=== PATIENT | female | born 1965 | race Caucasian/White ===

== ENCOUNTER → 2019-06-26 | Outpatient (CLI) | payer SELFPAY ==
[~2019-06-26] MED LIST: ATEN25TA PO
== END | disposition home or self-care (01) ==
LOC: HW VAS 04:49
DX: Z13.6 Encounter for screening for cardiovascular disorders (principal)

== ENCOUNTER 2024-11-15 09:53 | Outpatient (CLI) | payer MEDICARE, OTHER | END 2024-11-15 23:59 | disposition home or self-care (01) | LOC: MRI02 09:53 | PROVIDERS: ATTEND Physician Assistant | DX: M47.815 Spondylosis without myelopathy or radiculopathy, thoracolumbar region (principal); M81.0 Age-related osteoporosis without current pathological fracture; M54.6 Pain in thoracic spine; M54.50 Low back pain, unspecified; M41.9 Scoliosis, unspecified; M62.838 Other muscle spasm | CPT/HCPCS: 72146 ==